=== PATIENT | male | born 1930 | race Caucasian/White ===

== ENCOUNTER 2017-06-05 13:14 | Emergency (ER) | payer MEDICARE, OTHER ==
[~2017-06-05] VITALS: Ht 188 cm; Wt 77.1 kg
[~2017-06-05 13:14] MED LIST: ALEVE220 MG
== END 2017-06-05 18:47 | disposition home or self-care (01) ==
LOC: ER 13:14
DX: M79.662 Pain in left lower leg (principal); Z87.891 Personal history of nicotine dependence
CPT/HCPCS: 93971; 99284

== ENCOUNTER 2020-09-18 06:38 | Day surgery (SDC) | payer MEDICARE, OTHER ==
[~2020-09-18] VITALS: Ht 188 cm; Wt 78.0 kg
[~2020-09-18 06:38] MED LIST changes: +ATOR40TA PO; +Aspir 8181 MG PO; +METO25ER PO
--- NOTE | 2020-09-18 09:23 | NUR ---
PT RETURNED BACK TO RECOVERY ROOM IN A RECLINER. RIGHT TR BAND SITE WITH WRIST BOARD IN PLACE WITH NO HEMATOMA, NO PULSATILE BLEEDING SOFT NON-TENDER. PT DENIES CHEST PAIN. CALL LIGHT IN REACH.
[2020-09-18] MEDS ORDERED: CLOP75 PO (09:48)
--- NOTE | 2020-09-18 11:34 | NUR ---
ADDITIONAL 4 CC AIR REMOVED FROM TR BAND.
--- NOTE | 2020-09-18 11:54 | NUR ---
REMAINDER OF AIR REMOVED FROM TR BAND. SLIGHT BRUISE.
--- NOTE | 2020-09-18 12:07 | NUR ---
DEFLATED RIGHT TR BAND SITE SOFT NON-TENDER WITH NO HEMATOMA, NO PULSATILE BLEEDING. PT EATING LUNCH AND CALL LIGHT IN REACH.
--- NOTE | 2020-09-18 12:24 | NUR ---
NO CHANGES TO DEFLATED RIGHT TR BAND SITE.
--- NOTE | 2020-09-18 12:41 | NUR ---
NO CHANGES TO DEFLATED RIGHT TR BAND SITE.
--- NOTE | 2020-09-18 13:35 | NUR ---
NO CHANGES TO DEFLATED RIGHT TR BAND SITE. PT WATCHING TV.
--- NOTE | 2020-09-18 14:53 | NUR ---
DEFLATED TR BAND REMOVED AND POLYMEM PLACED OVER RIGHT RADIAL TR BAND SITE WITH WRIST BOARD IN PLACE. NO CHANGES TO RIGHT RADIAL SITE; SOFT NON-TENDER WITH NO HEMATOMA AND NO PULSATILE BLEEDING. 20 G IV REMOVED FROM LEFT AC WITH INTACT CANNULA. DISCHARGE INTSTRUCTIONS REVIEWED AND ALL QUESTIONS ANSWERED. PT AMBULATED TO BR TO VOID. PT ESCORTED OUT VIA WHEELCHAIR ESCORT.
== END 2020-09-18 15:06 | disposition home or self-care (01) ==
LOC: MHTC 06:38
DX: R07.89 Other chest pain (principal); I25.10 Atherosclerotic heart disease of native coronary artery without angina pectoris; I47.2 Ventricular tachycardia; I10 Essential (primary) hypertension; Z79.82 Long term (current) use of aspirin
CPT/HCPCS: 76937; 85347; 93458; 93571; 93572; 99152; 99153; A9270; C1725; C1769; C1874; C1887; C1894; C9600; J2250; J3010; J7030; J7050; Q9967